=== PATIENT | male | born 1960 | race Hispanic/Latino ===

== ENCOUNTER → 2021-07-13 | Day surgery (SDC) | payer BC ==
[2021-07-10 16:13] LABS: ANION GAP 15.6 mmol/L (8-16); CALCIUM 10.2 mg/dL (8.4-10.2); CREATININE, SERUM 0.97 mg/dL (0.72-1.25); POTASSIUM 4.6 mmol/L (3.5-5.1)
[~2021-07-13] MED LIST: ATENOLOL50 MG PO; CEFTRIAXONE 1 GM VIAL ONE; DEXAMETHASONE SOD PHOS INJ 4 MG/ML SDV ONE; FENTANYL CITRATE/PF 100MCG/2 ML INJ ONE; FLOMAX0.4 MG PO; GLUCOTROL XL10 MG PO; LIDOCAINE HCL 2% LOCAL INJ 5 ML SDV VIAL INJ ONE; LIPITOR10 MG PO; MIDAZOLAM HCL 2 MG/2 ML VIAL ONE; ONDANSETRON HCL INJ 2MG/ML 2ML 2 MG/ML VIAL ONE; POVIDONE IODINE 0.05% 0.05 % ML PO ONE; PROPOFOL IV EMULSION 10 MG/ML 20 ML VIAL ONE; SEVOFLURANE INHAL SOLN 250 ML PEN BTL ONE; TRELEGY ELLIPT1 EACH INH; VIT D PO
[2021-07-13 09:30] VITALS: BP 145/91
== END | disposition home or self-care (01) ==
LOC: OR 07:09
PROVIDERS: ATTEND Urology
DX: N20.0 Calculus of kidney (principal); N40.1 Benign prostatic hyperplasia with lower urinary tract symptoms; N13.8 Other obstructive and reflux uropathy; R81 Glycosuria; I10 Essential (primary) hypertension; E78.5 Hyperlipidemia, unspecified; E11.9 Type 2 diabetes mellitus without complications; K21.9 Gastro-esophageal reflux disease without esophagitis; K44.9 Diaphragmatic hernia without obstruction or gangrene; R06.00 Dyspnea, unspecified; Z88.6 Allergy status to analgesic agent; Z88.1 Allergy status to other antibiotic agents; Z01.810 Encounter for preprocedural cardiovascular examination; Z01.812 Encounter for preprocedural laboratory examination; Z01.818 Encounter for other preprocedural examination; Z20.822 Contact with and (suspected) exposure to COVID-19; Z79.84 Long term (current) use of oral hypoglycemic drugs; Z79.899 Other long term (current) drug therapy
CPT/HCPCS: 36415 ×2; 50590; 74018; 80048; 82948; 93005; J0696; J1100; J2001; J2250; J2405; J2704; J3010; U0002

== ENCOUNTER → 2022-08-02 | Day surgery (SDC) | payer BC, OTHER ==
[2022-07-31 15:43] LABS: ANION GAP 16.7 mmol/L (8-16); CALCIUM 9.8 mg/dL (8.4-10.2); CREATININE, SERUM 1.11 mg/dL (0.72-1.25); POTASSIUM 4.7 mmol/L (3.5-5.1)
[~2022-08-02] MED LIST changes: +BENICAR20 MG PO; -DEXAMETHASONE SOD PHOS INJ 4 MG/ML SDV ONE; +EPHEDRINE SULFATE INJ 50 MG/ML VIAL ONE; +FOSAMAX PLUS D1 EACH PO; +JARDIANCE10 MG PO; +METFORMIN HCL500 MG PO; +METOCLOPRAMIDE HCL 10 MG/2ML VIAL ONE; +SUGAMMADEX SODIUM 200 MG/2 ML VIAL IV ONE; +TYLENOL EXTRA500 MG PO
[2022-08-02 08:23] VITALS: BP 123/81
== END | disposition home or self-care (01) ==
LOC: OR 05:53
PROVIDERS: ATTEND Urology
DX: N20.0 Calculus of kidney (principal); I10 Essential (primary) hypertension; E11.9 Type 2 diabetes mellitus without complications; K76.0 Fatty (change of) liver, not elsewhere classified; Z88.6 Allergy status to analgesic agent; Z88.1 Allergy status to other antibiotic agents; Z88.8 Allergy status to other drugs, medicaments and biological substances; Z79.84 Long term (current) use of oral hypoglycemic drugs; Z79.899 Other long term (current) drug therapy
CPT/HCPCS: 36415; 50590; 74018; 80048; 82948; 93005; J0696; J2001; J2250; J2405; J2765; J3010